=== PATIENT | male | born 1950 | race Caucasian/White ===

== ENCOUNTER 2019-10-20 08:56 | Day surgery (SDC) | payer MEDICARE, OTHER ==
[~2019-10-20] VITALS: Ht 180.3 cm; Wt 105.8 kg
[2019-10-20] MEDS ORDERED: fentaNYL/PF 50MCG/1 ML 2ML syringe IV ONE (09:25)
[2019-10-20] MEDS ORDERED: amiodarone 50MG/ML inj IV ONE (09:45)
[2019-10-20 10:00] VITALS: BP 121/56
[2019-10-20] MEDS ORDERED: amiodarone 150mg/dext, iso-os 100 ML IV ONE ×2 (10:05→10:30)
[2019-10-20] MEDS ORDERED: METF500T PO (10:07)
[2019-10-20] MEDS ORDERED: ASPI-1265 PO (10:07)
[2019-10-20] MEDS ORDERED: FISH OIL PO (10:07)
[2019-10-20] MEDS ORDERED: FENO145T38 PO (10:07)
[2019-10-20] MEDS ORDERED: FLO0.4C PO (10:07)
[2019-10-20] MEDS ORDERED: alogliptin PO (10:07)
[2019-10-20] MEDS ORDERED: ISAGENIX PO (10:07)
[2019-10-20] MEDS ORDERED: CLOP75TA15 PO (10:07)
[2019-10-20] MEDS ORDERED: PANT-47 PO (10:07)
[2019-10-20] MEDS ORDERED: FERR-119 PO (10:07)
[2019-10-20] MEDS ORDERED: BISO10TA PO (10:07)
[2019-10-20] MEDS ORDERED: ASCO500C15 PO (10:07)
[2019-10-20] MEDS ORDERED: B-12 IM (10:07)
[2019-10-20] MEDS ORDERED: LEUP22.54 IM (10:07)
[2019-10-20] MEDS ORDERED: B 12 PO (10:07)
[2019-10-20] MEDS ORDERED: DARO300T PO (10:07)
[2019-10-20] MEDS ORDERED: SPIR50TA5 PO (10:07)
[2019-10-20] MEDS ORDERED: AMLO10TA4 PO (10:07)
--- NOTE | 2019-10-20 10:30 | NUR ---
Dr. Hernandez notified of pt in sinus rhythm. New orders received. Addendum: 10/20/19 at 1228 by Robert Whitaker RN Amended: Links added.
== END 2019-10-20 12:15 | disposition home or self-care (01) ==
LOC: SSTAY O 08:56
PROVIDERS: ATTEND Internal Medicine Cardiovascular Disease
DX: I48.92 Unspecified atrial flutter (principal); Z53.8 Procedure and treatment not carried out for other reasons; I10 Essential (primary) hypertension; E78.5 Hyperlipidemia, unspecified; I25.10 Atherosclerotic heart disease of native coronary artery without angina pectoris; I25.2 Old myocardial infarction; I25.5 Ischemic cardiomyopathy; I47.1 Supraventricular tachycardia; E11.9 Type 2 diabetes mellitus without complications; Z85.46 Personal history of malignant neoplasm of prostate; Z98.890 Other specified postprocedural states; Z95.5 Presence of coronary angioplasty implant and graft; Z79.899 Other long term (current) drug therapy; Z79.82 Long term (current) use of aspirin; Z79.84 Long term (current) use of oral hypoglycemic drugs; Z88.1 Allergy status to other antibiotic agents; Z88.8 Allergy status to other drugs, medicaments and biological substances
CPT/HCPCS: 93005; J0282

== ENCOUNTER 2019-11-27 10:38 | Day surgery (SDC) | payer MEDICARE, OTHER ==
[~2019-11-27 10:38] MED LIST: AMLO10TA4 PO; ASCO500C15 PO; ASPI-1265 PO; B 12 PO; B-12 IM; BISO10TA PO; CLOP75TA15 PO; DARO300T PO; FENO145T38 PO; FERR-119 PO; FISH OIL PO; FLO0.4C PO; ISAGENIX PO; LEUP22.54 IM; METF500T PO; PANT-47 PO; SPIR50TA5 PO; alogliptin PO
--- NOTE | 2019-11-27 13:35 | NUR ---
PT ARRIVED AND STATED THAT HE DID NOT FEEL HE WAS IN [place]UT[place] TODAY, EKG COMPLETED INDICATED SINUS RHYTHM CALL TO DR GOMEZ. DR GOMEZ ARRIVED DISCUSSED WITH PT SINUS RHYTHM, PROCEDURE CANCELED.
== END 2019-11-27 11:35 | disposition home or self-care (01) ==
LOC: SSTAY O 10:38
PROVIDERS: ATTEND Internal Medicine Cardiovascular Disease
DX: I48.4 Atypical atrial flutter (principal); Z53.8 Procedure and treatment not carried out for other reasons
CPT/HCPCS: 93005